=== PATIENT | female | born 1985 | race Caucasian/White ===

== ENCOUNTER 2020-07-27 08:30 | Outpatient (CLI) | payer OTHER, SELFPAY ==
[2020-07-27 08:58] VITALS: BP 131/90; PULSE 113
[2020-07-27 09:15] VITALS: BP 122/86; PULSE 113
[2020-07-27 09:28] LABS: Basophils Percent Auto 0.1 % (0.2-1.2); Eosinophils Percent Auto 0.2 % (0-4.4); Hematocrit 36.3 % (37.0-47.0); Hemoglobin 12.2 g/dL (12.0-15.0); Immature Granulocyte Absolute 0.09 K/mm3 (0.00-0.031); Immature Granulocyte Percent A 0.7 % (0-0.5); Lymphocytes Absolute Auto 1.49 K/mm3 (0.9-3.2); Lymphocytes Percent Auto 11.1 % (18.3-44.2); Mean Corpuscular HGB Conc 33.6 g/dl (32-36); Mean Corpuscular Hemoglobin 31.7 pg (26-34); Mean Corpuscular Volume 94.3 fl (80-100); Monocytes Absolute Auto 0.8 K/mm3 (0.1-0.6); Monocytes Percent Auto 5.8 % (2.6-8.5); Neutrophils Percent Auto 82.1 % (45.5-73.1); Platelet Count Result 189 k/mm3 (150-375); Red Blood Count 3.85 M/mm3 (4.2-5.4); Red Cell Distribution Width 12.6 % (11.5-14.5); White Blood Count 13.4 K/mm3 (4.5-10.0)
[2020-07-27 09:30] VITALS: BP 126/84; PULSE 108
[2020-07-27 09:33] LABS: Add Urine Microscopic? YES; Appearance Urine Cloudy (Clear); Bacteria Urine 1+ /hpf; Bilirubin Urine Negative (Negative); Blood Urine Negative (Negative); Color Urine Straw (Yellow); Glucose Urine UA Negative (Negative); Ketones Urine Negative (Negative); Leukocyte Esterase Ur 2+ LEU/UL (NEGATIVE); Nitrate Urine Negative (Negative); Protein Urine Negative (Negative); RBC Urine 0-2 /hpf (0-2); Specific Grav Ur 1.006 (1.001-1.035); Squamous Epithelial Cell Urine Many /hpf (Few); Urobilinogen Urine Negative mg/dL (<2.0)
[2020-07-27 09:45] VITALS: BP 125/84; PULSE 104
[2020-07-27 09:50] LABS: Alanine Aminotransferase 12 U/L (4-35); Albumin Level 3.4 g/dL (3.5-5.1); Alkaline Phosphatase 137 U/L (38-126); Anion Gap 5 mmol/L (8-16); Aspartate Amino Transferase 25 U/L (14-36); Bilirubin,Total 0.5 mg/dL (0.2-1.3); Blood Urea Nitrogen 6 mg/dL (7-17); Calcium 9.4 mg/dL (8.4-10.2); Carbon Dioxide 22 mmol/L (22-30); Chloride 108 mmol/L (98-107); Estimated Glomerular Filt Rate > 60; Glucose 83 mg/dL (65-105); Potassium 3.7 mmol/L (3.4-5.0); Sodium 135 mmol/L (137-145); Uric Acid 4.8 mg/dL (2.5-7.5)
[2020-07-27 10:03] VITALS: BP 125/84; PULSE 107
[2020-07-27 10:17] LABS: Creatinine Urine 31.4 mg/dL; Total Protein Urine Random 15 mg/dL; Ur Ttl Prot Creatinine Ratio 0.48 mg/mg (0-0.20)
== END 2020-07-27 10:05 | disposition home or self-care (01) ==
LOC: ANHOBOP 08:41 → ANHOBPP 07-28 14:22
PROVIDERS: PCP Family Medicine; Visit Provider Obstetrics & Gynecology
DX: O13.9 Gestational [pregnancy-induced] hypertension without significant proteinuria, unspecified trimester (principal); Z3A.00 Weeks of gestation of pregnancy not specified
CPT/HCPCS: 36415; 59025; 80053; 81001; 82570; 84156; 84550; 85025; 87086; 99199

== ENCOUNTER 2020-07-29 14:41 | Inpatient (IN) | payer OTHER, SELFPAY ==
[2020-07-29] VITALS (14 sets, daily range): BP systolic 113–136; BP diastolic 74–96; PULSE 94–114; TEMP 37–37.2; BMI 26.2
[2020-07-29 15:23] LABS: Basophils Percent Auto 0.2 % (0.2-1.2); Eosinophils Percent Auto 0.2 % (0-4.4); Hematocrit 41.2 % (37.0-47.0); Immature Granulocyte Absolute 0.11 K/mm3 (0.00-0.031); Immature Granulocyte Percent A 0.8 % (0-0.5); Lymphocytes Absolute Auto 1.73 K/mm3 (0.9-3.2); Lymphocytes Percent Auto 12.4 % (18.3-44.2); Mean Corpuscular Hemoglobin 32.1 pg (26-34); Mean Corpuscular Volume 94.5 fl (80-100); Mean Platelet Volume 11.5 fl (7.4-10.4); Monocytes Absolute Auto 0.8 K/mm3 (0.1-0.6); Monocytes Percent Auto 5.8 % (2.6-8.5); Neutrophils Absolute Auto 11.3 K/mm3 (1.3-6.7); Neutrophils Percent Auto 80.6 % (45.5-73.1); Platelet Count Result 226 k/mm3 (150-375); Red Blood Count 4.36 M/mm3 (4.2-5.4); Red Cell Distribution Width 12.5 % (11.5-14.5)
[2020-07-29 15:31] LABS: Alanine Aminotransferase 15 U/L (4-35); Albumin Level 3.8 g/dL (3.5-5.1); Alkaline Phosphatase 175 U/L (38-126); Anion Gap 6 mmol/L (8-16); Aspartate Amino Transferase 31 U/L (14-36); Bilirubin,Total 0.5 mg/dL (0.2-1.3); Blood Urea Nitrogen 7 mg/dL (7-17); Calcium 9.1 mg/dL (8.4-10.2); Carbon Dioxide 23 mmol/L (22-30); Chloride 107 mmol/L (98-107); Estimated Glomerular Filt Rate > 60; Glucose 100 mg/dL (65-105); Potassium 3.8 mmol/L (3.4-5.0); Sodium 136 mmol/L (137-145); Uric Acid 4.4 mg/dL (2.5-7.5)
[2020-07-29] MEDS: DINOPROSTONE 10 MG VAG INSERT VAGINAL (15:54)
[2020-07-29 16:15] LABS: Creatinine Urine 44.5 mg/dL; Total Protein Urine Random 13 mg/dL; Ur Ttl Prot Creatinine Ratio 0.29 mg/mg (0-0.20)
--- NOTE | 2020-07-29 16:48 | WPDANESEPP ---
Anes - Eval Pre Procedure Procedure: Labor epidural Date/Time: 07/29/20 16:48 Surgeon: Phoebe Preop Diagnosis: pain during labor Pre Op Diagnosis: Induction of Labor Patient Data Age: 35 Gender: F Height: Weight: Last Vital Signs Pulse 101 H 07/29/20 16:45 BP 121/84 07/29/20 16:45 Allergies Allergy/AdvReac Type Severity Reaction Status Date / Time No Known Allergies Allergy Verified 07/29/20 15:53 Home Medications Medication Instructions Recorded Confirmed Type grywkkzvcg-xwbuxqqiuqqhr-lipt 1 tablet PO Q6H PRN 07/10/20 07/10/20 History [Fioricet] omega-3 fatty acids [Fish Oil] 1,250 mg PO DAILY 07/10/20 07/10/20 History gkuvmp32-toxz fum-folic ac-om3 1 pkg PO DAILY 07/10/20 07/10/20 History [Daily ] Laboratory Tests 07/29/20 07/29/20 07/29/20 15:02 15:02 15:02 WBC 14.0 K/mm3 H K/mm3 (4.5-10.0) RBC 4.36 M/mm3 M/mm3 (4.2-5.4) Hgb 14.0 g/dL g/dL (12.0-15.0) Hct 41.2 % % (37.0-47.0) MCV 94.5 fl fl (80-100) MCH 32.1 pg pg (26-34) MCHC 34.0 g/dl g/dl (32-36) RDW 12.5 % % (11.5-14.5) Plt Count 226 k/mm3 k/mm3 (150-375) MPV 11.5 fl H fl (7.4-10.4) Immature Gran % (Auto) 0.8 % H % (0-0.5) Neut % (Auto) 80.6 % H % (45.5-73.1) Lymph % (Auto) 12.4 % L % (18.3-44.2) Benton % (Auto) 5.8 % % (2.6-8.5) Eos % (Auto) 0.2 % % (0-4.4) Baso % (Auto) 0.2 % % (0.2-1.2) Lymph # (Auto) 1.73 K/mm3 K/mm3 (0.9-3.2) Benton # (Auto) 0.8 K/mm3 H K/mm3 (0.1-0.6) Eos # (Auto) 0.0 K/mm3 K/mm3 (0-0.3) Baso # (Auto) 0.0 K/mm3 K/mm3 (0.0-0.1) Abs Immat Gran (auto) 0.11 K/mm3 H K/mm3 (0.00-0.031) Absolute Neuts (auto) 11.3 K/mm3 H K/mm3 (1.3-6.7) Absolute Nucleated RBC 0.0 K/mm3 K/mm3 (0.0-0.012) Nucleated RBC % 0.0 % % (0.0-0.2) Sodium 136 mmol/L L mmol/L (137-145) Potassium 3.8 mmol/L mmol/L (3.4-5.0) Chloride 107 mmol/L mmol/L (98-107) Carbon Dioxide 23 mmol/L mmol/L (22-30) Anion Gap 6 mmol/L L mmol/L (8-16) BUN 7 mg/dL mg/dL (7-17) Creatinine 0.60 mg/dL L mg/dL (0.7-1.0) Estim Creat Clear Calc Not Reportable Estimated GFR > 60 (59 - ) Glucose 100 mg/dL mg/dL (65-105) Uric Acid 4.4 mg/dL mg/dL (2.5-7.5) Calcium 9.1 mg/dL mg/dL (8.4-10.2) Total Bilirubin 0.5 mg/dL mg/dL (0.2-1.3) AST 31 U/L U/L (14-36) ALT 15 U/L U/L (4-35) Alkaline Phosphatase 175 U/L H U/L (38-126) Total Protein 8.0 g/dL g/dL (6.3-8.2) Albumin 3.8 g/dL g/dL (3.5-5.1) U Random Total Protein 13 mg/dL mg/dL Urine Creatinine 44.5 mg/dL mg/dL Protein/Creat Ratio 2 0.29 mg/mg H mg/mg (0-0.20) RPR 07/29/20 15:02 WBC RBC Hgb Hct MCV MCH MCHC RDW Plt Count MPV Immature Gran % (Auto) Neut % (Auto) Lymph % (Auto) Benton % (Auto) Eos % (Auto) Baso % (Auto) Lymph # (Auto) Benton # (Auto) Eos # (Auto) Baso # (Auto) Abs Immat Gran (auto) Absolute Neuts (auto) Absolute Nucleated RBC Nucleated RBC % Sodium Potassium Chloride Carbon Dioxide Anion Gap BUN Creatinine Estim Creat Clear Calc Estimated GFR Glucose Uric Acid Calcium Total Bilirubin AST ALT Alkaline Phosphatase Total Protein Albumin U Random Total Protein Urine Creatinine Protein/Creat Ratio 2 RPR Pending Patient hx anesthesia problems: none Family hx anesthesi
--- NOTE | 2020-07-29 19:06 | LDADM ---
This patient, Laura Mcgrath, was admitted to Labor/Delivery/Recovery 108 on 07/29/20 at 14:41. Plans for labor, pain management and were discussed with patient. Patient/family oriented to hospital policies and general routines including ID bracelet, bed and alarms, visiting hours, pain management, procedures, bathroom and other care routines, personal items, smoking policy, room service/diet and guest tray routines, security routines, and visiting hours. Patient/Family are encouraged to report perceived risks to care and to ask questions if they do not understand what they are told or what they should do. See OBIX for further documentation.
[2020-07-30] VITALS (111 sets, daily range): BP systolic 85–157; BP diastolic 45–105; PULSE 78–281; RESP 18; TEMP 36.7–37.4; O2SAT 99–100
[2020-07-30] MEDS: CALCIUM CARBONATE (TUMS) 500 MG (200 MG ELEMENTAL) PO (00:30)
[2020-07-30] MEDS: OXYTOCIN 30 UNITS/NS 500 ML 30 UNITS/500 ML BAG 6 UNITS IV CONT (05:39)
[2020-07-30] MEDS: LACTATED RINGERS 1,000 ML 125 ML IV CONT ×2 (05:39→09:54)
--- NOTE | 2020-07-30 07:53 | P.HP_ITS ---
Obstetrics - Admit Note Admission Note: record reviewed. No pertinent additions to the history and/or any subsequent changes in the physical findings that are not consistent with the expected course of the were found. MIL for GHTN, AROM /- 2, moderate amount of clear odorless fluid Additions to the history and/or subsequent changes in the physical findings follow. None.
--- NOTE | 2020-07-30 07:53 | PM.IMHP ---
H&P: HPI History of Present Illness Date/Time: 07/30/20 07:53 Chief Complaint: MIL Narrative: Laura Mcgrath is a 35 year old female PENDING SALE TO [facility] Family History Family History (Updated 03/05/14 @ 07:13 by DOCTOR UNKNOWN) Father Family history of lung cancer Social History Social History Smoking status: Never smoker Alcohol intake: never Substance use: never Gender identity (if verbalized by the patient): Female Sexual Orientation (if Verbalized by the Patient): Straight or Heterosexual Spiritual care concerns: No Meds Home Medications and Allergies Home Medications Medication Instructions Recorded Confirmed Type fqjbnfzkln-ovmymyozlpmsu-awae 1 tablet PO Q6H PRN 07/10/20 07/10/20 History [Fioricet] omega-3 fatty acids [Fish Oil] 1,250 mg PO DAILY 07/10/20 07/10/20 History mayazd44-zjno fum-folic ac-om3 1 pkg PO DAILY 07/10/20 07/10/20 History [Daily ] Allergies Allergy/AdvReac Type Severity Reaction Status Date / Time No Known Allergies Allergy Verified 07/29/20 15:53 Vital Signs Vital Signs - 24 hr 07/29/20 15:39 07/29/20 16:15 07/29/20 16:30 Temperature Pulse Rate 109 H 101 H 101 H Blood Pressure 136/93 H 113/83 126/92 H 07/29/20 16:45 07/29/20 17:00 07/29/20 17:15 Temperature Pulse Rate 101 H 99 94 Blood Pressure 121/84 123/85 127/87 07/29/20 18:00 07/29/20 19:38 07/29/20 19:45 Temperature Pulse Rate 105 H 102 H 114 H Blood Pressure 126/84 131/89 125/88 07/29/20 20:00 07/29/20 20:15 07/29/20 20:35 Temperature 37.0 C Pulse Rate 106 H 106 H Blood Pressure 124/79 119/74 07/29/20 23:55 07/29/20 23:56 07/30/20 00:00 Temperature 37.2 C Pulse Rate 112 H 112 H Blood Pressure 136/96 H 122/93 H 07/30/20 00:15 07/30/20 00:30 07/30/20 00:45 Temperature Pulse Rate 109 H 107 H 110 H Blood Pressure 139/95 H 127/96 H 139/90 07/30/20 01:00 07/30/20 01:15 07/30/20 01:30 Temperature Pulse Rate 105 H 111 H 103 H Blood Pressure 128/92 H 130/91 H 123/82 07/30/20 01:45 07/30/20 01:56 07/30/20 03:12 Temperature 37.2 C Pulse Rate 112 H 101 H Blood Pressure 115/70 133/87 07/30/20 03:15 07/30/20 03:21 07/30/20 03:30 Temperature 36.7 C Pulse Rate 100 109 H Blood Pressure 125/88 132/91 H 07/30/20 03:45 07/30/20 04:00 07/30/20 05:03 Temperature 36.9 C Pulse Rate 121 H 107 H 103 H Blood Pressure 123/91 H 129/96 H 132/91 H 07/30/20 05:15 07/30/20 05:30 07/30/20 05:45 Temperature Pulse Rate 104 H 104 H 124 H Blood Pressure 132/84 128/82 153/105 H 07/30/20 06:00 07/30/20 06:15 07/30/20 06:30 Temperature Pulse Rate 103 H 100 93 Blood Pressure 125/89 121/86 124/91 H 07/30/20 06:45 07/30/20 07:00 07/30/20 07:15 Temperature Pulse Rate 99 108 H 100 Blood Pressure 122/86 132/96 H 139/87 07/30/20 07:45 Temperature Pulse Rate 94 Blood Pressure 139/94 H H&P: Results Labs Labs: Short CBC 07/29/20 Range/Units 15:02 WBC 14.0 H (4.5-10.0) K/mm3 Hgb 14.0 (12.0-15.0) g/dL Hct 41.2 (37.0-47.0) % Plt Count 226 (150-375) k/mm3 BMP 07/29/20 15:02 Sodium 136 L Potassium 3.8 Chloride 107 Carbon Dioxide 23 BUN 7 Creatinine 0.60 L Glucose 100 Calcium 9.1 Liver Function 07/29/20 Range/Units 15:02 Total Bilirubin 0.5 (0.2-1.3) mg/dL AST 31 (14-36) U/L ALT 15 (4-35) U/L Alkaline Phosphatase 175 H (38-126) U/L Albumin 3.8 (3.5-5.1) g/dL Assessment and Plan Assessment and plan (1) Gestational HTN: Code(s): O13.9 - Gestational [-induced] hypertension without significant proteinuria, unspecified trimester Status: Acute (2) Intrauterine : Code(s): Z34.90 - Encounter for supervision of normal , unspecified, unspecified trimester Status: Acute
[2020-07-30] MEDS: ONDANSETRON INJ 4 MG/2 ML VIAL IV PUSH (11:01)
[2020-07-30] MEDS: PHENYLEPHRINE 1,000 MCG/10 ML SYRINGE 100 MCG IV PUSH ×3 (11:09→11:38)
[2020-07-30 14:27] LABS: Rapid Plasma Reagin Non-Reactive (NonReactive)
--- NOTE | 2020-07-30 17:45 | PM.OBPRVD ---
OB - Delivery Note Procedure Delivery date: 07/30/20 Procedure: vaginal delivery events: Induced HTN Intrapartal events: None Induction method: AROM and per pitocin protocol Delivery monitor: external FHT and external uterine Route of delivery: Laceration Description: Perineal - 1st Degree Delivery repair: vicryl Specimen: Yes Quantitative Blood Loss (ml): 175 Anesthesia type: Epidural Disposition: other () Baby Date of : 07/30/20 Time of : 17:28 Weeks of gestation at delivery: 38 Infant gender: Female Weight (pounds): 6 Weight (ounces): 13 presentation: vertex position: Left Occiput Anterior Placenta delivery description: Spontaneous cord vessel description: 3 Vessels, Nuchal Cord, Loose, Reduced, Clamped/Cut and Delayed Cord Clamping score one minute: 9 score five minutes: 9 Narrative: mother and baby skin to skin in stable condition
[2020-07-30] MEDS: OXYTOCIN 30 UNITS/NS 500 ML 30 UNITS/500 ML BAG 125 UNITS IV CONT (17:59)
[2020-07-30] MEDS: WITCH HAZEL 40 PADS 1 PAD TOPICAL (20:14)
[2020-07-30] MEDS: BENZOCAINE 20% AER SPR (*SP) 56 GM CAN 1 SPRAY TOPICAL (20:14)
[2020-07-30] MEDS: SUMAtriptan SUCCINATE 25 MG TABLET 50 MG PO (20:18)
--- NOTE | 2020-07-30 20:32 | PC.NURSE ---
Patient transferred to post room #281 via wheelchair. Support person present. Oriented to unit, room, information board, rooming in, admission packet and security measures. Patient verbalizes understanding.
[2020-07-31] MEDS: IBUPROFEN 600 MG TABLET PO ×3 (04:45→16:30)
--- NOTE | 2020-07-31 05:44 | PM.OBPNVD ---
OB - PN: Subj Subjective Date/time seen: 07/31/20 05:44 Patient comments: no complaints baby status: doing well OB - PN: Obj Data Labs CBC & Chem 7: 07/29/20 15:02 07/29/20 15:02 Labs: Laboratory Results - last 24 hr 07/29/20 15:02 RPR Non-reactive OB - PN A/P Plan day: 1 Plan: routine care Time Spent With Patient Time: Total time spent is greater than 50% in coordination of care (as documented) at patient's floor/unit and/or counseling patient: Review of Systems Review of Systems: All systems reviewed & are unremarkable except as noted in HPI and below Exam Const: General: cooperative Orientation/consciousness: patient oriented x3
[2020-07-31 05:53] LABS: Hemoglobin 10.7 g/dL (12.0-15.0)
[2020-07-31] MEDS: WITCH HAZEL 40 PADS 1 PAD TOPICAL (07:20)
[2020-07-31] MEDS: DOCUSATE SODIUM 100 MG CAPSULE PO ×2 (07:20→16:29)
[2020-07-31] MEDS: BENZOCAINE 20% AER SPR (*SP) 56 GM CAN 1 SPRAY TOPICAL (07:20)
[2020-07-31] MEDS: CALCIUM CARBONATE (TUMS) 500 MG (200 MG ELEMENTAL) PO (07:20)
[2020-07-31 07:47] VITALS: BP 117/84; PULSE 102; RESP 18; TEMP 36.6; O2SAT 99
--- NOTE | 2020-07-31 09:51 | WPDANLDPN2 ---
Anes-Prog Note L&D Date/Time: 07/31/20 09:51 Comfortable throughout: labor and delivery Neuraxial method: epidural Epidural/Spinal procedure site: clean & non-tender Neuro status: Neuro function grossly intact. Cardiovascular status: normal Respiratory status: normal Airway patency: baseline Mental status: baseline Post-Op hydration status: normal Vital Signs: Last Vital Signs Temp 36.6 C 07/31/20 07:47 Pulse 102 H 07/31/20 07:47 Resp 18 07/31/20 07:47 BP 117/84 07/31/20 07:47 Pulse Ox 99 07/31/20 07:47 Pain score (VAS): 07/18 I/O: Intake & Output 07/30/20 07/31/20 07/31/20 23:59 07:59 15:59 Intake Total 1999 Balance 1999 Post-procedural complaints: none Patient feedback: Patient satisfied with anesthetic care.
[2020-07-31] MEDS: HYDROcodone/acetaminophen (*CRX) 5-325 MG TABLET 1 TAB PO ×2 (12:30→16:29)
[2020-07-31 19:15] VITALS: BP 129/88; PULSE 84; RESP 18; TEMP 36.7; O2SAT 100
--- NOTE | 2020-07-31 19:15 | PC.NURSE ---
Patient to view the discharge video Mother & Baby Care, The First Two Weeks online. Patient was given the opportunity and encouraged to ask questions. Patient verbalized understanding of information shared and has been given the mother/baby guide for home reference.
[2020-08-01] MEDS: IBUPROFEN 600 MG TABLET PO ×2 (05:18→11:59)
[2020-08-01 08:30] VITALS: BP 133/82; PULSE 98; RESP 16; TEMP 37; O2SAT 98
--- NOTE | 2020-08-01 10:02 | PM.OBPNVD ---
OB - PN: Subj Subjective Date/time seen: 08/01/20 10:02 Patient comments: no complaints baby status: doing well [place] feeding status: exclusively bottle feeding OB - PN: Obj Data Labs CBC & Chem 7: 07/31/20 04:50 07/29/20 15:02 OB - PN A/P Plan day: 2 Plan: routine care and discharge home Time Spent With Patient Time: Total time spent is greater than 50% in coordination of care (as documented) at patient's floor/unit and/or counseling patient: Review of Systems Review of Systems: All systems reviewed & are unremarkable except as noted in HPI and below Exam Const: General: cooperative Limitations: no limitations Psych: Attitude: cooperative Insight: Good insight present (Psych) Judgement: Good judgement present (Psych)
--- NOTE | 2020-08-01 10:04 | P.DS_ITS ---
DS: Admitting Diagnosis Admitting Diagnosis Admitting Diagnosis: BAKARI IRAHETATToya OB - DS: Summary OB Procedures : None OB Procedures Intrapartum: Spontaneous Vag Delivery OB Procedures: : None Time Spent with Patient Time attestation: Total time spent providing and/or coordinating discharge services: DS: Data Data Completed and Pending Pending studies at discharge: Pending at discharge 07/30/20 18:04 Surgical [PTH] Routine Discharge Plan Discharge Attending physician on discharge: Elena Sandhu Discharging Clinician: Bryanna Singh Patient Disposition: Home, Self-Care Activity: pelvic rest Diet: regular Patient Instructions: Antibiotic Form Stand Alone Forms: General Discharge Information Follow-up/Referrals: Bryanna Singh, CNM [Certified Nurse Makeup Instructor] - 4 Weeks Discharge Medications: Continued drrhmgsxdq-emuyapavqppcp-pfrk [Fioricet] 50-325-40 mg Tablet 1 tablet PO Q6H PRN (Reason: headache) RF: 0 Fish Oil Capsule 1,250 mg PO DAILY RF: 0 Daily [phone] mg-mcg-mg Combo Pack 1 pkg PO DAILY RF: 0 Date of admission: 07/29/20 14:41 Primary Care Provider: Natacha,Davey Ruff Admitting Provider: lEena Sandhu Attending physician on admission: Elena Sandhu Condition: Stable
[2020-08-01] MEDS: ACETAMINOPHEN 325 MG TABLET 650 MG PO (11:57)
[2020-08-03 07:52] VITALS: BP 129/88; PULSE 101; RESP 20; TEMP 36.4; O2SAT 98
== END 2020-08-01 14:35 | disposition home or self-care (01) | DRG 807 ==
LOC: ANHLDR 14:44 → ANHOB2 07-30 21:04
PROVIDERS: Advanced Practice Midwife; Admitting Provider Obstetrics & Gynecology; PCP Family Medicine; Visit Provider Obstetrics & Gynecology
DX: O13.4 Gestational [pregnancy-induced] hypertension without significant proteinuria, complicating childbirth (principal); Z37.0 Single live birth; O70.0 First degree perineal laceration during delivery; O69.81X0 Labor and delivery complicated by cord around neck, without compression, not applicable or unspecified; Z3A.38 38 weeks gestation of pregnancy
CPT/HCPCS: 36415; 80053; 82570; 84156; 84550; 85014; 85018; 85025; 86592; 86850; 86900; 86901; 88307; A9270; J2370; J2405; J2590; J2795; J7120

== ENCOUNTER → 2020-09-17 09:18 | Outpatient (CLI) | payer OTHER, SELFPAY ==
--- NOTE | ~2020-09-17 | MMUS_ITS ---
EXAMINATION: MM diagnostic leonor RT w ailyn, US breast RT complete HISTORY: Upper inner quadrant palpable right breast lump, diminishing in size. Patient 6 weeks postpa rtum. TECHNIQUE: ML, MLO and craniocaudal 3-D tomosynthesis images of the right breast were performed and s ynthetic 2-D images were generated. CAD analysis was submitted and interpreted. High resolution compl ete right breast ultrasound was performed. COMPARISON: None BREAST PARENCHYMAL COMPOSITION: The breasts are extremely dense, which lowers the sensitivity of mamm ography. FINDINGS: MAMMOGRAPHIC FINDINGS: No suspicious mass, architectural distortion, malignant calcification, skin thickening or retraction is evident. ULTRASOUND: 1:00 4 cm from nipple: This is the area of palpable lump. There is a lobular sonolucency measuring 1. 2 x 2.9 x 2.3 cm, with through transmission posterior enhancement, compatible with simple cyst. There is an adjacent lobular 1 x 1.5 cm cyst. Additional 8 x 11 and 5 x 7.5 mm cysts are noted in the same area. 7:00 5 cm from nipple: 4 x 5 mm cyst 7:00 3 cm from nipple: 4 x 7.5 mm cyst 10:00 4 cm from nipple: 3.3 x 6 mm cyst 10:00 3 cm from nipple: 6 x 7 x 10 mm cyst No suspicious mass or shadowing is evident. IMPRESSION: 1. Multiple right breast cysts; no mammographic evidence malignancy 2. Routine mammographic screening beginning at age 40 is recommended. BI-RADS Category 2: Benign finding(s). Reviewed, dictated and finalized at location A. KE CLERK IMPRESSION: 1. Multiple right breast cysts; no mammographic evidence malignancy 2. Routine mammographic screening beginning at age 40 is recommended. BI-RADS Category 2: Benign finding(s).
== END ==
PROVIDERS: Visit Provider Advanced Practice Midwife
DX: N63.12 Unspecified lump in the right breast, upper inner quadrant (principal)
CPT/HCPCS: 76641; 77061; 77065; G0279